=== PATIENT | male | born 1995 | race Caucasian/White ===

== ENCOUNTER 2016-10-24 09:14 | Emergency (ER) | payer SELFPAY ==
[~2016-10-24] VITALS: Wt 81.6 kg
[~2016-10-24 09:14] MED LIST: AMOXICILLIN500 MG PO; AUGMENTIN 875 M1 TAB PO; AUGMENTIN 875875 MG PO; CIPRODEX 0.3%-7.5 ML OT; CLARITIN10 MG PO; DOXYCYCLINE100 M2 PO; DUONEB 3 MG/3 ML3 M1 INH; FLEXERIL5 MG PO; IBU800 MG PO; MEDROL DOSEPAK4 MG PO; MIRALAX17 GM/PACK PO; MOTRIN400 MG PO; MOTRIN800 MG PO; Motrin,Rufen800 MG PO; PHENERGAN W/ DE30 ML PO; PREDNICOT10 MG PO; PREDNICOT20 MG PO; PROAIR HFA0.09 MG/AC INH; SINGULAIR10 MG PO; TYLENOL W/CODEI1 TA2 PO; ULTRAM50 MG PO; [UNRECOGNIZED DRUG - OTHER]
[2016-10-24 09:24] VITALS: BP 122/56
[2016-10-24] MEDS ORDERED: NORCO 5-325 TA1 EACH PO (10:01)
== END 2016-10-24 10:33 | disposition home or self-care (01) ==
LOC: ED 09:14
DX: S62.201A Unspecified fracture of first metacarpal bone, right hand, initial encounter for closed fracture (principal); S40.212A Abrasion of left shoulder, initial encounter; V86.59XA Driver of other special all-terrain or other off-road motor vehicle injured in nontraffic accident, initial encounter; Y93.89 Activity, other specified; Y92.413 State road as the place of occurrence of the external cause; Y99.9 Unspecified external cause status

== ENCOUNTER → 2016-11-03 | Outpatient (CLI) | payer SELFPAY ==
[~2016-11-03] MED LIST changes: +NORCO 5-325 TA1 EACH PO
== END | disposition home or self-care (01) ==
LOC: ORTHO 02:17
DX: S62.201D Unspecified fracture of first metacarpal bone, right hand, subsequent encounter for fracture with routine healing (principal); X58.XXXD Exposure to other specified factors, subsequent encounter

== ENCOUNTER → 2016-11-09 | Day surgery (SDC) | payer SELFPAY ==
[2016-11-05 12:57] LABS: BASO % 0.4 % (0.0-1.0); EOS # 0.2 10*3/uL (0.0-0.4); EOS % 2.2 % (1.0-4.0); HEMATOCRIT 42.9 % (42.0-52.0); HEMOGLOBIN 14.5 g/dl (14.0-18.0); LYMPH # 2.1 10*3/uL (1.3-4.4); LYMPH % 22.4 % (27.0-41.0); MEAN CELL VOLUME 87.2 fl (80.0-94.0); MEAN CORPUSCULAR HGB 29.5 pg (27.0-31.0); MEAN CORPUSCULAR HGB CONC 33.8 g/dl (33.0-37.0); MEAN PLATELET VOLUME 10.2 fl (9.6-12.3); MONO # 0.7 10*3/uL (0.1-1.0); MONO % 8.1 % (3.0-9.0); NEUT # 6.1 10*3/uL (2.3-7.9); NEUT % 66.6 % (47.0-73.0); PLATELET COUNT AUTOMATED 218 10*3/uL (130-400); RED BLOOD COUNT 4.92 10*6/uL (4.50-5.90); WHITE BLOOD COUNT 9.2 10*3/uL (4.8-10.8)
[2016-11-05 13:27] LABS: BUN 9 mg/dl (7-24); CHLORIDE 104 mmol/L (98-107); CREATININE 0.97 mg/dL (0.70-1.30); SODIUM 139 mmol/L (136-145)
[~2016-11-09] VITALS: Ht 170.1 cm; Wt 81.6 kg
[~2016-11-09] MED LIST changes: +PERCOCET 5-3251 EACH PO; +ZOFRAN4 MG PO
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
[2016-11-09 06:30] VITALS: BP 114/63
[2016-11-09 09:17] VITALS: BP 147/80
[2016-11-09 09:30] VITALS: BP 132/65
[2016-11-09 09:59] VITALS: BP 122/75
[2016-11-09 10:16] VITALS: BP 115/76
== END | disposition home or self-care (01) ==
LOC: SDC 11-05 11:00
PROVIDERS: Orthopaedic Surgery
DX: S62.231A Other displaced fracture of base of first metacarpal bone, right hand, initial encounter for closed fracture (principal); J45.909 Unspecified asthma, uncomplicated; K21.9 Gastro-esophageal reflux disease without esophagitis; F17.210 Nicotine dependence, cigarettes, uncomplicated; Z98.890 Other specified postprocedural states; X58.XXXA Exposure to other specified factors, initial encounter; Y93.89 Activity, other specified; Y92.89 Other specified places as the place of occurrence of the external cause; Y99.8 Other external cause status

== ENCOUNTER → 2016-11-22 | Outpatient (CLI) | payer SELFPAY | END | disposition home or self-care (01) | LOC: ORTHO 03:25 | DX: S62.231D Other displaced fracture of base of first metacarpal bone, right hand, subsequent encounter for fracture with routine healing (principal); X58.XXXD Exposure to other specified factors, subsequent encounter ==

== ENCOUNTER 2016-12-09 20:06 | Emergency (ER) | payer SELFPAY ==
[~2016-12-09] VITALS: Ht 172.7 cm; Wt 83.9 kg
[2016-12-09 20:20] VITALS: BP 133/77
== END 2016-12-09 22:20 | disposition home or self-care (01) ==
LOC: ED 20:06
DX: S05.12XA Contusion of eyeball and orbital tissues, left eye, initial encounter (principal); F17.200 Nicotine dependence, unspecified, uncomplicated; Z91.02 Food additives allergy status; Z88.8 Allergy status to other drugs, medicaments and biological substances; Z79.899 Other long term (current) drug therapy; Y04.0XXA Assault by unarmed brawl or fight, initial encounter; Y93.89 Activity, other specified; Y92.89 Other specified places as the place of occurrence of the external cause; Y99.8 Other external cause status

== ENCOUNTER → 2016-12-10 | Outpatient (CLI) | payer SELFPAY | END | disposition home or self-care (01) | LOC: ORTHO 09:24 | DX: S62.201D Unspecified fracture of first metacarpal bone, right hand, subsequent encounter for fracture with routine healing (principal); X58.XXXD Exposure to other specified factors, subsequent encounter ==

== ENCOUNTER 2017-05-19 18:56 | Emergency (ER) | payer SELFPAY ==
[~2017-05-19] VITALS: Ht 170.1 cm; Wt 81.6 kg
[2017-05-19 18:57] VITALS: BP 126/70
[2017-05-19] MEDS ORDERED: ZITHROMAX250 MG PO (20:20)
[2017-05-19] MEDS ORDERED: PROAIR HFA8.5 GM INH (20:20)
== END 2017-05-19 21:26 | disposition home or self-care (01) ==
LOC: ED 18:56
DX: J18.9 Pneumonia, unspecified organism (principal); F17.200 Nicotine dependence, unspecified, uncomplicated; J45.909 Unspecified asthma, uncomplicated; Z79.899 Other long term (current) drug therapy; Z91.018 Allergy to other foods

== ENCOUNTER 2017-07-11 17:35 | Emergency (ER) | payer SELFPAY ==
[~2017-07-11] VITALS: Ht 172.7 cm; Wt 81.6 kg
[~2017-07-11 17:35] MED LIST changes: +PROAIR HFA8.5 GM INH; +ZITHROMAX250 MG PO
[2017-07-11 17:37] VITALS: BP 129/80
[2017-07-11] MEDS ORDERED: PREDNISONE10 MG PO (17:53)
== END 2017-07-11 18:00 | disposition home or self-care (01) ==
LOC: ED 17:35
DX: L23.7 Allergic contact dermatitis due to plants, except food (principal); R03.0 Elevated blood-pressure reading, without diagnosis of hypertension; Z98.890 Other specified postprocedural states; Z91.018 Allergy to other foods; Z79.899 Other long term (current) drug therapy

== ENCOUNTER 2017-09-19 18:08 | Emergency (ER) | payer SELFPAY ==
[~2017-09-19] VITALS: Wt 79.4 kg
[~2017-09-19 18:08] MED LIST changes: +PREDNISONE10 MG PO
[2017-09-19] MEDS ORDERED: AUGMENTIN 875-875 MG PO (18:10)
[2017-09-19 18:12] VITALS: BP 129/77
[2017-09-19] MEDS ORDERED: NAPROSYN500 MG PO (18:28)
[2017-09-19] MEDS ORDERED: CIPRODEX 0.3%-7.5 ML OT (18:28)
== END 2017-09-19 18:39 | disposition home or self-care (01) ==
LOC: ED 18:08
DX: H60.93 Unspecified otitis externa, bilateral (principal); Z98.890 Other specified postprocedural states; Z79.899 Other long term (current) drug therapy; Z91.018 Allergy to other foods

== ENCOUNTER 2018-03-07 19:26 | Emergency (ER) | payer SELFPAY ==
[~2018-03-07] VITALS: Ht 170.1 cm; Wt 81.6 kg
[~2018-03-07 19:26] MED LIST changes: +AUGMENTIN 875-875 MG PO; +NAPROSYN500 MG PO
[2018-03-07 19:28] VITALS: BP 143/81
[2018-03-07] MEDS ORDERED: MEDROL DOSEPAK4 MG PO (20:50)
[2018-03-07] MEDS ORDERED: NAPROSYN500 MG PO (20:50)
[2018-03-07] MEDS ORDERED: ROBAXIN500 M1 PO (20:50)
== END 2018-03-07 20:55 | disposition home or self-care (01) ==
LOC: ED 19:26
DX: S46.911A Strain of unspecified muscle, fascia and tendon at shoulder and upper arm level, right arm, initial encounter (principal); F17.200 Nicotine dependence, unspecified, uncomplicated; X58.XXXA Exposure to other specified factors, initial encounter; Y93.89 Activity, other specified; Y92.89 Other specified places as the place of occurrence of the external cause; Y99.8 Other external cause status

== ENCOUNTER 2024-11-01 11:48 | Emergency (ER) | payer OTHER ==
[~2024-11-01] VITALS: Ht 172.7 cm; Wt 86.2 kg
[~2024-11-01 11:48] MED LIST changes: +CEPHALEXIN500 M1 PO; +ROBAXIN500 M1 PO
[2024-11-01 11:56] VITALS: BP 124/71
[2024-11-01] MEDS ORDERED: Cyclobenzaprine Hydrochlorid 10 MG TAB PO ONE (12:20)
[2024-11-01] MEDS ORDERED: NAPROXEN 250 MG TAB PO ONE (12:20)
[2024-11-01] MEDS ORDERED: METHOCARBAMOL750 M1 PO (13:23)
[2024-11-01] MEDS ORDERED: NAPROSYN500 MG PO (13:23)
== END 2024-11-01 13:49 | disposition home or self-care (01) ==
LOC: ED 11:48
DX: S49.91XA Unspecified injury of right shoulder and upper arm, initial encounter (principal); M25.531 Pain in right wrist; Z91.048 Other nonmedicinal substance allergy status; Z79.899 Other long term (current) drug therapy; X50.0XXA Overexertion from strenuous movement or load, initial encounter; Y93.89 Activity, other specified; Y92.89 Other specified places as the place of occurrence of the external cause; Y99.8 Other external cause status

== ENCOUNTER 2025-01-13 17:06 | Emergency (ER) | payer OTHER ==
[~2025-01-13 17:06] MED LIST changes: +METHOCARBAMOL750 M1 PO
[2025-01-13 17:23] VITALS: BP 116/75
[2025-01-13] MEDS ORDERED: CEPHALEXIN 500 MG CAP PO ONE (17:50)
[2025-01-13] MEDS ORDERED: CEPHALEXIN500 M1 PO (18:25)
[2025-01-13] MEDS ORDERED: IBUPROFEN 800 MG TAB PO ONE (18:40)
[2025-01-13] MEDS ORDERED: Motrin,Rufen800 MG PO (18:51)
== END 2025-01-13 18:31 | disposition home or self-care (01) ==
LOC: ED 17:06
DX: S01.01XA Laceration without foreign body of scalp, initial encounter (principal); Z29.9 Encounter for prophylactic measures, unspecified; F41.9 Anxiety disorder, unspecified; J45.909 Unspecified asthma, uncomplicated; Z88.8 Allergy status to other drugs, medicaments and biological substances; X58.XXXA Exposure to other specified factors, initial encounter; Y93.89 Activity, other specified; Y92.89 Other specified places as the place of occurrence of the external cause; Y99.8 Other external cause status

== ENCOUNTER 2025-01-21 15:30 | Emergency (ER) | payer OTHER ==
[~2025-01-21] VITALS: Ht 170.1 cm; Wt 86.2 kg
[2025-01-21 15:35] VITALS: BP 150/87
== END 2025-01-21 16:25 | disposition home or self-care (01) ==
LOC: ED 15:30
DX: S01.01XD Laceration without foreign body of scalp, subsequent encounter (principal); J45.909 Unspecified asthma, uncomplicated; Z88.8 Allergy status to other drugs, medicaments and biological substances; X58.XXXD Exposure to other specified factors, subsequent encounter